=== PATIENT | male | born 1985 | race Caucasian/White ===

== ENCOUNTER 2024-10-06 13:29 | Emergency (ER) | payer OTHER, SELFPAY ==
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
[2024-10-06 13:53] VITALS: BP 134/69; PULSE 70; RESP 16; TEMP 36.4; O2SAT 100
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
== END 2024-10-06 15:54 | disposition home or self-care (01) ==
LOC: ANHED 15:54
PROVIDERS: Emergency Provider Physician Assistant
DX: S50.12XA Contusion of left forearm, initial encounter (principal); V89.2XXA Person injured in unspecified motor-vehicle accident, traffic, initial encounter
CPT/HCPCS: 70450; 73090; 99284